=== PATIENT | female | born 2005 | race Caucasian/White ===

== ENCOUNTER 2023-06-04 14:31 | Emergency (ER) | payer OTHER ==
[2023-06-04] MEDS ORDERED: diphenhydrAMINE 50 MG/ML VIAL ONE (16:53)
[2023-06-04] MEDS ORDERED: Metoclopramide HCl 10 MG/2 ML VIAL ONE ×2 (16:53→18:16)
[2023-06-04 17:52] LABS: #Eosinphils 0.2 thou/uL (0.0-0.7); #Monocytes 0.7 thou/uL (0.11-0.59); #Neutrophils 5.4 thou/uL (1.40-6.50); %Basophils 0.2 % (0.0-1.0); %Eosinophils 2.1 % (0.0-10.0); %Lymphocytes 33.4 % (28.0-48.0); %Monocytes 7.4 % (0.0-4.0); %Neutrophils 56.7 % (31.0-61.0); Hematocrit 44.7 % (36.0-47.0); Hemoglobin 15.2 g/dL (12.0-16.0); Mean Corpuscular Hemoglobin 29.7 pg (25.0-35.0); Mean Corpuscular Volume 87.5 fl (78.0-98.0); Mean Platelet Volume 8.8 fL (7.4-10.4); Platelet Count 297 10x3/uL (130-400); RBC Distribution Width 12.1 % (11.5-14.5); Red Blood Cell (RBC) Count 5.11 mill/uL (4.00-5.20); White Blood Cell (WBC) Count 9.5 10x3/uL (4.8-10.8)
[2023-06-04] MEDS ORDERED: Ketorolac Tromethamine 30 MG/ML VIAL ONE (18:16)
[2023-06-04] MEDS ORDERED: methylPREDNISolone Sod Succ/PF 125 MG/2 ML VIAL ONE (18:16)
[2023-06-04] MEDS ORDERED: Magnesium 2 GM/50 ML BAG (IN WATER) ONE (18:16)
[2023-06-04 18:33] LABS: ALT (SGPT) 107 U/L (8-55); AST (SGOT) 68 U/L (5-34); Albumin 4.6 g/dL (3.5-5.0); Alkaline Phosphatase 70 U/L (40-100); Anion Gap 12 mmol/L (10-20); BUN (Urea Nitrogen) 9 mg/dL (7.0-18.7); Bilirubin, Total 0.6 mg/dL (0.2-1.2); Calc. Creatinine Clearance 0 mL/min (70-130); Calcium 9.9 mg/dL (7.8-10.44); Carbon Dioxide 23 mmol/L (22-29); Chloride 106 mmol/L (98-107); Estimated GFR 111; Globulin 3.4 g/dL (2.4-3.5); Glucose 74 mg/dL (70-105); Potassium 4.6 mmol/L (3.5-5.1); Sodium 136 mmol/L (136-145)
== END 2023-06-04 19:34 | disposition home or self-care (01) ==
LOC: ERS 14:31
DX: G43.911 Migraine, unspecified, intractable, with status migrainosus (principal)
CPT/HCPCS: 80053; 85025; 96365; 96368; 96375; 96376; J1200; J1885; J2765; J2930; J3475